=== PATIENT | female | born 1965 | race Caucasian/White ===

== ENCOUNTER 2017-12-14 06:55 | Outpatient (CLI) | payer BC ==
--- NOTE | 2017-12-14 09:09 | ULT ---
THYROID ULTRASOUND: INDICATION: Palpable lump right thyroid region. COMPARISON: No prior comparison. FINDINGS: Length of the right thyroid lobe is 4.2 cm and the left thyroid lobe 4 cm. The thyroid isthmus measu res between 2 and 3 mm in thickness, within normal limits. There is a complex echogenicity, partiall y calcified nodule, with shadowing measuring 5 mm at the upper to mid right thyroid lobe. Additional punctate cystic nodule is seen within the right thyroid lobe. No dominant nodules at or greater prosper n 1 cm are present. IMPRESSION: A 5 mm partially calcified complex nodule of the right thyroid lobe. Recommend 6-month followup thyr oid ultrasound for continued assessment. POS: [facility]
== END 2017-12-14 06:56 | disposition home or self-care (01) ==
LOC: SCSULT 06:55
PROVIDERS: ATTEND Family Medicine
DX: C73 Malignant neoplasm of thyroid gland (principal); E04.1 Nontoxic single thyroid nodule
CPT/HCPCS: 76536